=== PATIENT | female | born 1990 | race Caucasian/White ===

== ENCOUNTER → 2017-02-14 | Outpatient (CLI) | payer BC ==
--- NOTE | 2017-02-14 15:44 | RAD ---
Right wrist radiograph 02/14/2017 at 1538 hours Indication: Right wrist pain, injured while moving fracture. Comparison: None available Technique: 4 views of the right wrist are provided. Findings: Carpal bones are well aligned. There is no acute fracture or dislocation. No significant soft tissue swelling. Bone mineralization is within normal limits. Joint spaces are maintained. Impression: No acute fracture or dislocation.
== END | disposition home or self-care (01) ==
LOC: DXRADRC 15:28
PROVIDERS: ATTEND Family Medicine
DX: M25.531 Pain in right wrist (principal)
CPT/HCPCS: 73110

== ENCOUNTER → 2017-07-22 | Outpatient (CLI) | payer OTHER ==
--- NOTE | 2017-07-22 12:06 | RAD ---
Right shoulder, 3 views, 07/22/2017: History: Shoulder pain No fracture or dislocation is identified. The periarticular soft tissues are unremarkable. IMPRESSION: No significant right shoulder abnormality is detected.
== END | disposition home or self-care (01) ==
LOC: PMG 11:29
PROVIDERS: ATTEND Physician Assistant
DX: M25.511 Pain in right shoulder (principal)
CPT/HCPCS: 73030

== ENCOUNTER 2017-11-14 08:52 | Emergency (ER) | payer BC, OTHER ==
[~2017-11-14] VITALS: Ht 154.9 cm; Wt 83.5 kg
[2017-11-14] MEDS ORDERED: IV NORMAL SALINE 1,000ML 1,000 ML IV SCH (09:10)
[2017-11-14] MEDS ORDERED: 0.9 % SODIUM CHLORIDE 10 ML DISP.SYRIN. IV PRN (09:15)
--- NOTE | 2017-11-14 09:42 | PHYS DOC ---
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 Patient had her normal menstrual period about 2 weeks ago began having some spotting and bleeding today and yesterday with some cramping in her lower abdominal region. Said the abdominal cramping comes and goes and is moderate in nature about a 510 at this time with some radiation to the flanks bilaterally and the lower abdomen. She denies any trauma, denies any vaginal discharge or history of STDs. She is sexual active without protection but does not believe she is as she had a normal menstrual period about 2 weeks ago. Patient denies any fevers, chills, UTI symptoms like urgency frequency or dysuria. Review of Systems Review of Systems Constitutional: Denies fever or chills [] Eyes: Denies change in visual acuity, redness, or eye pain [] HENT: Denies nasal congestion or sore throat [] Respiratory: Denies cough or shortness of breath [] Cardiovascular: No additional information not addressed in HPI [] GI: Positive for abdominal pain negative for nausea vomiting diarrhea or bloody stools or constipation. : Denies dysuria but positive for hematuria vaginal bleeding described a slight with some clot formation Musculoskeletal: Denies back pain or joint pain [] Integument: Denies rash or skin lesions [] Neurologic: Denies headache, focal weakness or sensory changes [] Endocrine: Denies polyuria or polydipsia [] All other systems were reviewed and found to be within normal limits, except as documented in this note. Current Medications Current Medications Current Medications Medications (Trade) Dose Ordered Sig/Fina Start Time Stop Time Status Last Admin Dose Admin Sodium Chloride (Normal Saline Flush) 10 ml QSHIFT PRN 11/14/17 09:15 Allergies Allergies Allergies Coded Allergies Type Severity Reaction Last Updated Verified sulfamethoxazole Allergy Unknown Rash 11/14/17 Yes trimethoprim Allergy Unknown Rash 11/14/17 Yes Physical Exam Physical Exam The vital signs recorded the chart within normal limits. Constitutional: Well developed, well nourished, no acute distress, non-toxic appearance. [] HENT: Normocephalic, atraumatic, bilateral external ears normal, oropharynx moist, Cardiovascular:Heart rate regular rhythm, no murmur [] Lungs & Thorax: Bilateral breath sounds clear to auscultation [] Abdomen: Bowel sounds normal, soft, no tenderness, no guarding rebound or organomegaly no Dozier's or McBurney's point tenderness palpation. No masses, no pulsatile masses. [] Skin: Warm, dry, no erythema, no rash. [] Back: No tenderness, no CVA tenderness. [] ] Neurologic: Alert and oriented X 3,[] Psychologic: Affect normal, judgement normal, mood normal. [] EKG EKG [] Radiology/Procedures Radiology/Procedures [] Course & Med Decision Making Course & Med Decision Making Laboratory Tests Test 11/14/17 09:15 11/14/17 09:19 11/14/17 09:40 Urine Collection Type Unknown Urine Color Yellow Urine Clarity Clear Urine pH 6.5 Urine Specific [place] 1.020 Urine Protein Neg (NEG-TRACE) Urine Glucose (UA) Neg mg/dL (NEG) Urine Ketones (Stick) Neg mg/dL (NEG) Urine Blood Neg (NEG) Urine Nitrite Neg (NEG) Urine Bilirubin Neg (NEG) Urine Urobilinogen Dipstick 0.2 mg/dL (0.2 mg/dL) Urine Leukocyte Esterase Neg (NEG) Urine RBC 0 /HPF (0-2) Urine WBC 0 /HPF (0-4) Urine Squamous Epithelial Cells Occ /LPF Urine Bacteria 0 /HPF (0-FEW) POC Urine HCG, Qualitative hcg negative (Negative) White Blood Count 10.2 x10^3/uL (4.0-11.0) Red Blood Count 4.52 x10^6/uL (3.50-5.40) Hemoglobin 14.4 g/dL (12.0-15.5) POC Hemoglobin 13.3 gm/dL Hematocrit 41.8 % (36.0-47.0) POC Hematocrit 39 % Mean Corpuscular Volume 93 fL (79-100) Mean Corpuscular Hemoglobin 32 pg (25-35) Mean Corpuscular Hemoglobin Concent 35 g/dL (31-37) Red Cell Distribution Width 13.0 % (11.5-14.5) Platelet Count 246 x10^3/uL (140-400) Neutrophils (%) (Auto) 56 % (31-73) Lymphocytes (%) (Auto) 32 % (24-48) Monocytes (%) (Auto) 6 % (0-9) Eosinophils (%) (Auto) 5 % (0-3) H Basophils (%) (Auto) 1 % (0-3) Neutrophils # (Auto) 5.7 x10^3uL (1.8-7.7) Lymphocytes # (Auto) 3.3 x10^3/uL (1.0-4.8) Monocytes # (Auto) 0.6 x10^3/uL (0.0-1.1) Eosinophils # (Auto) 0.5 x10^3/uL (0.0-0.7) Basophils # (Auto) 0.1 x10^3/uL (0.0-0.2) POC Sodium 141 mmol/L (135-145) POC Potassium 3.7 mmol/L (3.5-5.0) POC Chloride 100 mmol/L (98-110) POC Total CO2 26 mmol/L (23-32) Anion Gap 20 mmol/L (6-14) H POC Blood Urea Nitrogen 16 mg/dL (8-26) POC Creatinine 0.9 mg/dL (0.5-1.4) Glucose Level 105 mg/dL (60-99) H POC Ionized Calcium (Felipa) 1.19 mmol/L (1.13-1.32) Pertinent Labs and Imaging studies reviewed. (See chart for details) []Patient presents with dysfunctional uterine bleeding with minimal abdominal pain. Patient's urinalysis is clear for signs of infection, patient is not by negative urine test. Patient's H&H is nice and stable with normal findings. Patient's CMP is normal. Patient NOTED THE BEDSIDE WHERE THE PROFESSOR OF MARKETING A DIFFICULT TIME VISUALIZING THE LEFT OVARY BUT BASED ON HIS PHYSIOLOGIC APPEARANCE HE LOOKED NORMAL. PATIENT HAD NO ABDOMINAL PAIN AT THE TIME NOR DID SHE HAVE ANY COMPLAINT ON HER INITIAL PRESENTATION I DOUBT THIS IS TORSION. PATIENT IS MINIMAL BLEEDING IF ANY SHE HAS A SMALL AMOUNT OF FLUID IN THE UTERUS WHICH MAY BE ASSOCIATE WITH HER DYSFUNCTIONAL UTERINE BLEEDING. SHE ALSO NOTED CARPAL LUTEUM CYST WHICH MAY BE CAUSING THE ABDOMINAL DISCOMFORT. SHE HAD MINIMAL PHYSIOLOGIC FREE FLUID AND NO SIGNS OF ACTIVE HEMORRHAGE AT THIS TIME. Impression: Corpus luteum cyst, dysfunctional uterine bleeding. Disposition: discharge: I've spoken with the patient and/or caregivers. I've explained the patient's condition, diagnosis and treatment plan based on information available to me at this time. I've answered the patient's and/or caregivers questions and addressed any concerns. The patient and/or caregivers have a good understanding the patient's diagnosis, condition and treatment plan as can be expected at this point. Vital signs have been stabilized. The patient's condition is stable for discharge from the emergency department. The patient will pursue further outpatient evaluation with her primary care provider or other designated consulting physician as outlined in the discharge instructions. Patient and/or caregivers are agreeable to this plan of care and follow-up instructions have been explained in detail. The patient and/or caregivers have received these instructions in written format and expressed understanding of these discharge instructions. The patient and her caregivers are aware that if any significant change in condition or worsening of symptoms should prompt him to immediately return to this of the closest emergency department. If an emergent department is not readily available I would encourage him to call 911. Nathalia Disclaimer [place] Disclaimer This electronic medical record was generated, in whole or in part, using a voice recognition dictation system. Departure Departure: Impression: Primary Impression: Dysfunctional uterine bleeding Additional Impression: Cyst, corpus, luteum ruptured Disposition: 01 HOME, SELF-CARE Condition: STABLE Referrals: TRA RENTERIA DO (PCP) Patient Instructions: Uterine Bleeding, Dysfunctional Additional Instructions: discharge: I've spoken with the patient and/or caregivers. I've explained the patient's condition, diagnosis and treatment plan based on information available to me at this time. I've answered the patient's and/or caregivers questions and addressed any concerns. The patient and/or caregivers have a good understanding the patient's diagnosis, condition and treatment plan as can be expected at this point. Vital signs have been stabilized. The patient's condition is stable for discharge from the emergency department. The patient will pursue further outpatient evaluation with her primary care provider or other designated consulting physician as outlined in the discharge instructions. Patient and/or caregivers are agreeable to this plan of care and follow-up instructions have been explained in detail. The patient and/or caregivers have received these instructions in written format and expressed understanding of these discharge instructions. The patient and her caregivers are aware that if any significant change in condition or worsening of symptoms should prompt him to immediately return to this of the closest emergency department. If an emergent department is not readily available I would encourage him to call 911. Specialist women's care number [phone] Scripts Naproxen Sodium (NAPROXEN SODIUM) 275 Mg Tablet 275 MG PO BID for 7 Days, #14 TAB Prov: RAMOS GARCIA MD 11/14/17 Problem Qualifiers RAMOS GARCIA MD Nov 14, 2017 09:42
[2017-11-14 09:55] LABS: BACTERIA,URINE 0 /HPF (0-FEW); BILIRUBIN,URINE NEG (NEG); CLARITY,URINE CLEAR; COLOR,URINE YELLOW; GLUCOSE,URINE NEG (NEG); NITRITE,URINE NEG (NEG); RBC,URINE 0 /HPF (0-2); SQUAMOUS EPITHELIAL CELL,UR OCC /LPF; UROBILINOGEN,URINE 0.2 mg/dL (0.2 mg/dL); WBC,URINE 0 /HPF (0-4)
[2017-11-14 09:59] LABS: BASO # 0.1 x10^3/uL (0.0-0.2); BASO % 1 % (0-3); EOS # 0.5 x10^3/uL (0.0-0.7); EOS % 5 % (0-3); HEMATOCRIT 41.8 % (36.0-47.0); HEMOGLOBIN 14.4 g/dL (12.0-15.5); LYMPH # 3.3 x10^3/uL (1.0-4.8); LYMPH % 32 % (24-48); MEAN CORPUSCULAR HEMOGLOBIN 32 pg (25-35); MEAN CORPUSCULAR HGB CONC 35 g/dL (31-37); MEAN CORPUSCULAR VOLUME 93 fL (79-100); MONO # 0.6 x10^3/uL (0.0-1.1); MONO % 6 % (0-9); NEUT # 5.7 x10^3uL (1.8-7.7); NEUT % 56 % (31-73); PLATELET COUNT 246 x10^3/uL (140-400); RED BLOOD COUNT 4.52 x10^6/uL (3.50-5.40); WHITE BLOOD COUNT 10.2 x10^3/uL (4.0-11.0)
[2017-11-14 10:02] LABS: POTASSIUM ISTAT 3.7 mmol/L (3.5-5.0)
[2017-11-14 10:03] LABS: HEMOGLOBIN ISTAT 13.3 gm/dL
--- NOTE | 2017-11-14 10:47 | RAD ---
Transabdominal and transvaginal sonography of the pelvis Clinical indications: Dysfunctional uterine bleeding Transabdominal sonography: The uterus is anteverted in position. The longitudinal and AP and transverse dimensions of the uterus are 7.5 cm and 4.3 cm and 5.5 cm respectively. There is a fibroid of the fundal portion of the uterus. The endometrial canal is poorly visualized. Therefore, transvaginal sonography will be performed. The right ovary is normal and measures 3.1 cm and 2.1 cm and 2.8 cm in size and is normal. Color Doppler flow is seen within the right ovary. The left ovary is not visualized. No adnexal mass or fluid is evident. Transvaginal sonography: The fibroid is seen within the fundal portion of the uterus and measures 3.5 cm in greatest dimension. The endometrial canal is echogenic and measures 5.6 mm in thickness. No free fluid is seen within the endometrial canal. No free fluid is seen within the cul-de-sac. The right ovary contains a 1.7 cm corpus luteum cyst and demonstrates color Doppler flow. The left ovary measures 2.9 cm and 1.5 cm and 2.4 cm in size and is normal. Color Doppler flow could not be obtained within the left ovary. IMPRESSION: 3.5 cm fundal uterine fibroid. Endometrial canal is normal measuring 5.6 mm in thickness. 1.7 cm corpus luteum cyst of the right ovary. Color Doppler flow could not be attained within the left ovary which otherwise appears normal. This may be due to technical factors related to the posterior position of the left ovary. Ovarian torsion is considered unlikely given the normal appearance and size of the left ovary. Electronically signed by: Rojas Ruffin MD (11/14/2017 10:44 AM) [id number]
[2017-11-14] MEDS ORDERED: NAPR275T59 PO (11:18)
[2017-11-14 11:34] VITALS: BP 114/71
[2017-11-14 11:38] LABS: ALBUMIN 3.9 g/dL (3.4-5.0); ALK PHOS 67 U/L (46-116); TOTAL BILIRUBIN 0.4 mg/dL (0.2-1.0); TOTAL PROTEIN 6.7 g/dL (6.4-8.2)
[2017-11-14 11:39] LABS: ALT (SGPT) 27 U/L (14-59); AST (SGOT) 31 U/L (15-37)
[2017-11-14 11:40] LABS: DIRECT BILIRUBIN < 0.1 mg/dL (0.0-0.2); MAGNESIUM 1.9 mg/dL (1.8-2.4)
== END 2017-11-14 11:34 | disposition home or self-care (01) ==
LOC: ER 08:52
DX: N93.8 Other specified abnormal uterine and vaginal bleeding (principal); N83.11 Corpus luteum cyst of right ovary; Z88.1 Allergy status to other antibiotic agents; Z88.2 Allergy status to sulfonamides
CPT/HCPCS: 36415; 76830; 76856; 80047; 80076; 81001; 81025; 83735; 84702; 85025; 96360; 96361; 99285-25; J7030

== ENCOUNTER 2017-12-11 06:29 | Emergency (ER) | payer SELFPAY ==
[~2017-12-11] VITALS: Ht 154.9 cm; Wt 83.5 kg
[~2017-12-11 06:29] MED LIST: NAPR275T59 PO
== END 2017-12-11 06:45 | disposition left against medical advice (07) ==
LOC: ER 06:29 → EEVIPCON 06:29 → ER 06:45
DX: T76.21XA Adult sexual abuse, suspected, initial encounter (principal); Z53.21 Procedure and treatment not carried out due to patient leaving prior to being seen by health care provider

== ENCOUNTER 2018-04-03 01:14 | Emergency (ER) | payer OTHER ==
[~2018-04-03] VITALS: Ht 154.9 cm; Wt 77.0 kg
--- NOTE | 2018-04-03 01:19 | ED.ADGEN ---
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 I hurt my shoulder...".. I at [employer]..two weeks ago.. 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 but I first hurt it at [employer].. and they had me on leave and getting physical therapy... under Dr. Bourgeois.. but it is still hurting.... me." HPI HPI Patient is a 27 year old female who presents with above hx and complaints numbness under Rt. arm and pain with ROM of Rt. shoulder. Pt lst injured the shoulder at [facility] in June lat year. Pt. was under leave and PT with Dr. Bourgeois. Reportedly did a CT here at [place]. Pt. while on leave from [facility] , she started a job at [employer] and re-injury to Rt. shoulder two weeks ago. Pt. has sensation of Deltoid area. Subjective numbness under Rt axillary. Has some crepitation and limited ROM of Rt. Shoulder. Has some isolated rotator cuff weakness on Rt. shoulder testing. Distal neuro vascular equal to Lt . Pt, is Rt. hand dominate. Could not find old CT records under current name or daphney Anne. Pt. has old shoulder x-rays of 07/22/17, no significant findings noted. Today xrays show no interval change. Review of Systems Review of Systems Constitutional: Denies fever or chills [] Eyes: Denies change in visual acuity, redness, or eye pain [] HENT: Denies nasal congestion or sore throat [] Respiratory: Denies cough or shortness of breath [] Cardiovascular: No additional information not addressed in HPI [] GI: Denies abdominal pain, nausea, vomiting, bloody stools or diarrhea [] : Denies dysuria or hematuria [] Musculoskeletal: Denies back pain or joint pain []Except complaints of Rt shoulder pain. Integument: Denies rash or skin lesions [] Neurologic: Denies headache, focal weakness or sensory changes [] Endocrine: Denies polyuria or polydipsia [] All other systems were reviewed and found to be within normal limits, except as documented in this note. Family History Family History Non-contributory Current Medications Current Medications Current Medications Medications (Trade) Dose Ordered Sig/Fina Start Time Stop Time Status Last Admin Dose Admin Hydrocodone Bitartrate/ Ibuprofen (Vicoprofen 7.5-200) 2 tab 1X ONCE 04/03/18 02:15 04/03/18 02:36 DC 04/03/18 02:35 2 TAB Allergies Allergies Allergies Coded Allergies Type Severity Reaction Last Updated Verified sulfamethoxazole Allergy Unknown Rash 11/14/17 Yes trimethoprim Allergy Unknown Rash 11/14/17 Yes Physical Exam Physical Exam Constitutional: Well developed, well nourished, Moderately acute distress, intoxicated in appearance. [] HENT: Normocephalic, atraumatic, bilateral external ears normal, oropharynx moist, no oral exudates, nose normal. [] Eyes: PERRLA, EOMI, conjunctiva normal, no discharge. [] Neck: Normal range of motion, no tenderness, supple, no stridor. [] Cardiovascular:Heart rate regular rhythm, no murmur [] Lungs & Thorax: Bilateral breath sounds equal with scattered wheezes on auscultation [] Abdomen: Bowel sounds normal, soft, no tenderness, no masses, no pulsatile masses. [] Skin: Warm, dry, no erythema, no rash. [] Back: No tenderness, no CVA tenderness. [] Extremities: No tenderness, no cyanosis, no clubbing, ROM intact, no edema. [] Except findings in Rt shoulder as per HPI. Neurologic: Alert and oriented X 3, normal motor function, normal sensory function, no focal deficits noted. [] Psychologic: Affect anxious, judgement normal, mood normal. [] Current Patient Data Vital Signs Vital Signs Date Time Temp Pulse Resp B/P (MAP) Pulse Ox O2 Delivery O2 Flow Rate FiO2 04/03/18 02:05 95 16 107/70 (82) 98 Room Air 04/03/18 01:14 98.1 Lab Results Laboratory Tests Test 04/03/18 00:52 04/03/18 01:33 POC Urine HCG, Qualitative hcg negative (Negative) Urine Collection Type Unknown Urine Color Yellow Urine Clarity Clear Urine pH 5.5 Urine Specific [place] 1.015 Urine Protein Neg (NEG-TRACE) Urine Glucose (UA) Neg mg/dL (NEG) Urine Ketones (Stick) Neg mg/dL (NEG) Urine Blood Trace (NEG) Urine Nitrite Neg (NEG) Urine Bilirubin Neg (NEG) Urine Urobilinogen Dipstick 0.2 mg/dL (0.2 mg/dL) Urine Leukocyte Esterase Trace (NEG) Urine RBC 0 /HPF (0-2) Urine WBC 1-4 /HPF (0-4) Urine Squamous Epithelial Cells Occ /LPF Urine Bacteria 0 /HPF (0-FEW) Urine Opiates Screen Neg (NEG) Urine Methadone Screen Neg (NEG) Urine Barbiturates Neg (NEG) Urine Phencyclidine Screen Neg (NEG) Urine Amphetamine/Methamphetamine Neg (NEG) Urine Benzodiazepines Screen Neg (NEG) Urine Cocaine Screen Neg (NEG) Urine Cannabinoids Screen Neg (NEG) Urine Ethyl Alcohol Pos (NEG) EKG EKG [] Radiology/Procedures Radiology/Procedures My interpretation of results showed no obvious fracture dislocation. Comparison to prior film showed no interval change.[] Course & Med Decision Making Course & Med Decision Making Pertinent Labs and Imaging studies reviewed. (See chart for details) Pt. use Ice packs as needed. . Follow up with work comp. Tylenol and Ibuprofen for pain. Sling x 48 hrs. or until follow up with work comp. [] Final Impression Final Impression 1. Rt. shoulder []Injury- ? Recurrent- Rotator cuff injury Dragon Disclaimer Dragon Disclaimer This electronic medical record was generated, in whole or in part, using a voice recognition dictation system. ROBERT LEMOS MD Apr 03, 2018 01:19
[2018-04-03 02:05] VITALS: BP 107/70
[2018-04-03 02:07] LABS: BARBITURATES NEG (NEG); BENZODIAZEPINES NEG (NEG); CANNABINOIDS NEG (NEG); COCAINE NEG (NEG); METHADONE NEG (NEG); OPIATES NEG (NEG); PHENCYCLIDINE NEG (NEG)
[2018-04-03] MEDS ORDERED: HYDROcodon/IBUPROFEN 7.5/200MG 1 TAB TABLET PO ONE (02:15)
[2018-04-03 02:16] LABS: BILIRUBIN,URINE NEG (NEG); CLARITY,URINE CLEAR; COLOR,URINE YELLOW; GLUCOSE,URINE NEG (NEG); UROBILINOGEN,URINE 0.2 mg/dL (0.2 mg/dL)
[2018-04-03 02:17] LABS: BACTERIA,URINE 0 /HPF (0-FEW); NITRITE,URINE NEG (NEG); RBC,URINE 0 /HPF (0-2); SQUAMOUS EPITHELIAL CELL,UR OCC /LPF
[2018-04-03 02:21] LABS: AMPHETAMINE/METHAMPHETAMINE NEG (NEG)
--- NOTE | 2018-04-03 03:16 | RAD ---
RIGHT SHOULDER , 3 VIEWS Clinical Indication: Right shoulder pain with numbness Comparison: Right shoulder radiographs July 22, 2017. Findings: There is no acute fracture or dislocation. The acromioclavicular and glenohumeral joints are intact. The visualized lung is clear. There is no evidence of a displaced rib fracture. There is no soft tissue abnormality. IMPRESSION: No acute fracture or dislocation. Electronically signed by: Jerman Millan MD (04/03/2018 3:13 AM) [id number]
== END 2018-04-03 02:39 | disposition home or self-care (01) ==
LOC: ER 01:14
DX: S46.091A Other injury of muscle(s) and tendon(s) of the rotator cuff of right shoulder, initial encounter (principal); Z88.1 Allergy status to other antibiotic agents; X58.XXXA Exposure to other specified factors, initial encounter; Y93.89 Activity, other specified; Y92.512 Supermarket, store or market as the place of occurrence of the external cause; Y99.8 Other external cause status
CPT/HCPCS: 36415; 73030; 80307; 81001; 81025; 87086; 99285-25; G0479

== ENCOUNTER 2018-08-20 22:37 | Emergency (ER) | payer OTHER ==
[~2018-08-20] VITALS: Ht 156.2 cm; Wt 75.7 kg
--- NOTE | 2018-08-20 22:44 | ED.ADGEN ---
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 I been hurting down here on the Rt.... since yesterday.. it has never gone away... I ve had ovarian cysts in past... but this seem different... We did eat spaghetti at 6 tonight...and that just seemed to make the pain worse... " [facility] HPI Patient is a 28 year old female who presents with above hx and complaints Rt . . sided mid abdomen pain since yesterday. Has been eating and having normal stools. No nausea or vomiting. No history of trauma. No history of dysuria or vaginal discharge. Patient last ate at 1800 hrs. with no improvement of right lower abdomen pain. Pain appears to be located in area of bert tattoo. Does have mild heel tap/psoas. No history immunosuppression. No hx. travel. History of bad food intake. No history of specific ill contacts. Patient has had ovarian cysts in the past. She has had 3 pregnancies 1 miscarriage and one premature and 1 live . Review of Systems Review of Systems Constitutional: Denies fever or chills [] Eyes: Denies change in visual acuity, redness, or eye pain [] HENT: Denies nasal congestion or sore throat [] Respiratory: Denies cough or shortness of breath [] Cardiovascular: No additional information not addressed in HPI [] GI: Complaints of Rt. lower abdominal pain. Denies, nausea, vomiting, bloody stools or diarrhea [] : Denies dysuria or hematuria [] Musculoskeletal: Denies back pain or joint pain [] Integument: Denies rash or skin lesions [] Neurologic: Denies headache, focal weakness or sensory changes [] Endocrine: Denies polyuria or polydipsia [] All other systems were reviewed and found to be within normal limits, except as documented in this note. Family History Family History Noncontributory Current Medications Current Medications Current Medications Medications (Trade) Dose Ordered Sig/Fina Start Time Stop Time Status Last Admin Dose Admin Ceftriaxone Sodium 1 gm/ Sodium Chloride 50 ml @ 100 mls/hr 1X ONCE 08/20/18 23:30 08/20/18 23:58 DC Ceftriaxone Sodium (Rocephin) 1 gm ONCE ONCE 08/20/18 23:45 08/21/18 00:00 DC 08/20/18 23:58 1 GM Famotidine (Pepcid Vial) 20 mg 1X ONCE 08/20/18 23:15 08/20/18 23:16 DC 08/20/18 23:30 20 MG Info (Do NOT chart on this entry -- for MONITORING) 1 each PRN DAILY PRN 08/20/18 23:45 08/21/18 03:03 DC Iohexol (Omnipaque 240 Mg/ml) 50 ml 1X ONCE 08/21/18 00:00 08/21/18 00:01 DC 08/21/18 01:10 50 ML Iohexol (Omnipaque 300 Mg/ml) 75 ml 1X ONCE 08/21/18 00:00 08/21/18 00:01 DC 08/21/18 01:10 75 ML Ketorolac Tromethamine (Toradol 30mg Vial) 30 mg STK-MED ONCE 08/21/18 02:43 08/21/18 03:03 DC Lactated Ringer's 1,000 ml @ 1,000 mls/hr Q1H 08/20/18 23:00 08/21/18 00:00 DC 08/20/18 23:30 1,000 MLS/HR Ondansetron HCl (Zofran) 8 mg 1X ONCE 08/20/18 23:15 08/20/18 23:16 DC 08/20/18 23:30 8 MG Allergies Allergies Allergies Coded Allergies Type Severity Reaction Last Updated Verified sulfamethoxazole Allergy Unknown Rash 08/20/18 Yes trimethoprim Allergy Unknown Rash 08/20/18 Yes Physical Exam Physical Exam Constitutional: Well developed, well nourished, moderately acute distress, non- toxic appearance. [] HENT: Normocephalic, atraumatic, bilateral external ears normal, oropharynx moist, no oral exudates, nose normal. 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 [] Neck: Normal range of motion, no tenderness, supple, no stridor. [] Cardiovascular:Heart rate regular rhythm, no murmur [] Lungs & Thorax: Bilateral breath sounds clear to auscultation [] Abdomen: Bowel sounds normal, soft, mid to right lower quadrant tenderness, no masses, no pulsatile masses. [Declines rectal and vaginal exam at this time. Skin: Warm, dry, no erythema, no rash. [] Back: No tenderness, no CVA tenderness. [] Extremities: No tenderness, no cyanosis, no clubbing, ROM intact, no edema. [] Mild psoas. Neurologic: Alert and oriented X 3, normal motor function, normal sensory function, no focal deficits noted. [] Psychologic: Affect anxious, judgement normal, mood normal. [] Current Patient Data Vital Signs Vital Signs Date Time Temp Pulse Resp B/P (MAP) Pulse Ox O2 Delivery O2 Flow Rate FiO2 08/21/18 02:25 89 18 115/55 (75) 96 Room Air 08/20/18 22:40 98.9 Lab Results Laboratory Tests Test 08/20/18 22:44 08/20/18 22:54 08/20/18 23:15 Urine Collection Type Unknown Urine Color Yellow Urine Clarity Hazy Urine pH 6.5 Urine Specific Eden 1.020 Urine Protein Neg (NEG-TRACE) Urine Glucose (UA) Neg mg/dL (NEG) Urine Ketones (Stick) Neg mg/dL (NEG) Urine Blood Neg (NEG) Urine Nitrite Neg (NEG) Urine Bilirubin Neg (NEG) Urine Urobilinogen Dipstick 2 mg/dL (0.2 mg/dL) Urine Leukocyte Esterase Small (NEG) Urine RBC 0 /HPF (0-2) Urine WBC 5-10 /HPF (0-4) Urine Squamous Epithelial Cells Mod /LPF Urine Bacteria Few /HPF (0-FEW) Urine Opiates Screen Neg (NEG) Urine Methadone Screen Neg (NEG) Urine Barbiturates Neg (NEG) Urine Phencyclidine Screen Neg (NEG) Urine Amphetamine/Methamphetamine Neg (NEG) Urine Benzodiazepines Screen Neg (NEG) Urine Cocaine Screen Neg (NEG) Urine Cannabinoids Screen Neg (NEG) Urine Ethyl Alcohol Neg (NEG) POC Urine HCG, Qualitative hcg negative (Negative) White Blood Count 14.3 x10^3/uL (4.0-11.0) H Red Blood Count 4.49 x10^6/uL (3.50-5.40) Hemoglobin 14.1 g/dL (12.0-15.5) Hematocrit 41.4 % (36.0-47.0) Mean Corpuscular Volume 92 fL (79-100) Mean Corpuscular Hemoglobin 31 pg (25-35) Mean Corpuscular Hemoglobin Concent 34 g/dL (31-37) Red Cell Distribution Width 13.1 % (11.5-14.5) Platelet Count 262 x10^3/uL (140-400) Neutrophils (%) (Auto) 61 % (31-73) Lymphocytes (%) (Auto) 26 % (24-48) Monocytes (%) (Auto) 9 % (0-9) Eosinophils (%) (Auto) 3 % (0-3) Basophils (%) (Auto) 1 % (0-3) Neutrophils # (Auto) 8.7 x10^3uL (1.8-7.7) H Lymphocytes # (Auto) 3.7 x10^3/uL (1.0-4.8) Monocytes # (Auto) 1.2 x10^3/uL (0.0-1.1) H Eosinophils # (Auto) 0.5 x10^3/uL (0.0-0.7) Basophils # (Auto) 0.1 x10^3/uL (0.0-0.2) Prothrombin Time 9.8 SEC (9.4-11.4) Prothrombin Time INR 1.0 (0.9-1.1) PTT 26 SEC (23-33) Sodium Level 139 mmol/L (136-145) Potassium Level 3.8 mmol/L (3.5-5.1) Chloride Level 103 mmol/L (98-107) Carbon Dioxide Level 26 mmol/L (21-32) Anion Gap 10 (6-14) Blood Urea Nitrogen 16 mg/dL (7-20) Creatinine 0.8 mg/dL (0.6-1.0) Estimated GFR (Cockcroft-Gault) 85.4 Glucose Level 87 mg/dL (70-99) Calcium Level 8.3 mg/dL (8.5-10.1) L Total Bilirubin 0.3 mg/dL (0.2-1.0) Direct Bilirubin 0.1 mg/dL (0.0-0.2) Aspartate Amino Transferase (AST) 14 U/L (15-37) L Alanine Aminotransferase (ALT) 20 U/L (14-59) Alkaline Phosphatase 70 U/L (46-116) Total Protein 7.3 g/dL (6.4-8.2) Albumin 3.4 g/dL (3.4-5.0) Amylase Level 32 U/L (25-115) Lipase 137 U/L (73-393) EKG EKG [] Radiology/Procedures Radiology/Procedures My interpretation of acute abdomen film shows no acute cardiopulmonary findings. No free air in the diaphragm. Bilateral nipple studs. Has a nonobstructive bowel gas pattern. There is stool in right colon. CT of abdomen shows no hydronephrosis, no dilated loops of bowel, does have a mass like structure at fundus uterus. Possible fibroid. There is also lesion on left ovary. There is small amount of free fluid. Appendix appears not to be inflamed. Course & Med Decision Making Course & Med Decision Making Pertinent Labs and Imaging studies reviewed. (See chart for details) Patient's stay on a clear fluid diet only for the next 24-48 hours. No solid or milk products. Push fluids. Follow up urine cultures. Follow-up INDUSTRIAL SPRAY PAINTER for further evaluation of suspected uterine fibroid. Patient take [id number] Tylenol and ibuprofen. Patient take Keflex 500 mg 3 times a day. Patient return if any concerns. [] Final Impression Final Impression 1. Rt. Side Abd. Pain[] 2. UTI 3. Suspected ovarian cyst 4. Suspect uterine fibroid Dragon Disclaimer Dragon Disclaimer This electronic medical record was generated, in whole or in part, using a voice recognition dictation system. Dragon Disclaimer This chart was dictated in whole or in part using Voice Recognition software in a busy, high-work load, and often noisy Emergency Department environment. It may contain unintended and wholly unrecognized errors or omissions. Discharge Summary Visit Information Final Diagnosis Problems Medical Problems: (1) Ovarian cyst Status: Acute (2) Pain in the abdomen Status: Acute (3) Uterine fibroid Status: Acute (4) UTI (urinary tract infection) Status: Acute (5) Viral syndrome Status: Acute Brief Hospital Course Allergies Allergies Coded Allergies Type Severity Reaction Last Updated Verified sulfamethoxazole Allergy Unknown Rash 08/20/18 Yes trimethoprim Allergy Unknown Rash 08/20/18 Yes Vital Signs Vital Signs Date Time Temp Pulse Resp B/P (MAP) Pulse Ox O2 Delivery O2 Flow Rate FiO2 08/21/18 02:25 89 18 115/55 (75) 96 Room Air 08/20/18 22:40 98.9 Lab Results Laboratory Tests Test 08/20/18 22:44 08/20/18 22:54 08/20/18 23:15 Urine Collection Type Unknown Urine Color Yellow Urine Clarity Hazy Urine pH 6.5 Urine Specific [place] 1.020 Urine Protein Neg (NEG-TRACE) Urine Glucose (UA) Neg mg/dL (NEG) Urine Ketones (Stick) Neg mg/dL (NEG) Urine Blood Neg (NEG) Urine Nitrite Neg (NEG) Urine Bilirubin Neg (NEG) Urine Urobilinogen Dipstick 2 mg/dL (0.2 mg/dL) Urine Leukocyte Esterase Small (NEG) Urine RBC 0 /HPF (0-2) Urine WBC 5-10 /HPF (0-4) Urine Squamous Epithelial Cells Mod /LPF Urine Bacteria Few /HPF (0-FEW) Urine Opiates Screen Neg (NEG) Urine Methadone Screen Neg (NEG) Urine Barbiturates Neg (NEG) Urine Phencyclidine Screen Neg (NEG) Urine Amphetamine/Methamphetamine Neg (NEG) Urine Benzodiazepines Screen Neg (NEG) Urine Cocaine Screen Neg (NEG) Urine Cannabinoids Screen Neg (NEG) Urine Ethyl Alcohol Neg (NEG) Bedside Urine HCG, Qualitative hcg negative (Negative) White Blood Count 14.3 x10^3/uL (4.0-11.0) Red Blood Count 4.49 x10^6/uL (3.50-5.40) Hemoglobin 14.1 g/dL (12.0-15.5) Hematocrit 41.4 % (36.0-47.0) Mean Corpuscular Volume 92 fL (79-100) Mean Corpuscular Hemoglobin 31 pg (25-35) Mean Corpuscular Hemoglobin Concent 34 g/dL (31-37) Red Cell Distribution Width 13.1 % (11.5-14.5) Platelet Count 262 x10^3/uL (140-400) Neutrophils (%) (Auto) 61 % (31-73) Lymphocytes (%) (Auto) 26 % (24-48) Monocytes (%) (Auto) 9 % (0-9) Eosinophils (%) (Auto) 3 % (0-3) Basophils (%) (Auto) 1 % (0-3) Neutrophils # (Auto) 8.7 x10^3uL (1.8-7.7) Lymphocytes # (Auto) 3.7 x10^3/uL (1.0-4.8) Monocytes # (Auto) 1.2 x10^3/uL (0.0-1.1) Eosinophils # (Auto) 0.5 x10^3/uL (0.0-0.7) Basophils # (Auto) 0.1 x10^3/uL (0.0-0.2) Prothrombin Time 9.8 SEC (9.4-11.4) Prothromb Time International Ratio 1.0 (0.9-1.1) Activated Partial Thromboplast Time 26 SEC (23-33) Sodium Level 139 mmol/L (136-145) Potassium Level 3.8 mmol/L (3.5-5.1) Chloride Level 103 mmol/L (98-107) Carbon Dioxide Level 26 mmol/L (21-32) Anion Gap 10 (6-14) Blood Urea Nitrogen 16 mg/dL (7-20) Creatinine 0.8 mg/dL (0.6-1.0) Estimated GFR (Cockcroft-Gault) 85.4 Glucose Level 87 mg/dL (70-99) Calcium Level 8.3 mg/dL (8.5-10.1) Total Bilirubin 0.3 mg/dL (0.2-1.0) Direct Bilirubin 0.1 mg/dL (0.0-0.2) Aspartate Amino Transf (AST/SGOT) 14 U/L (15-37) Alanine Aminotransferase (ALT/SGPT) 20 U/L (14-59) Alkaline Phosphatase 70 U/L (46-116) Total Protein 7.3 g/dL (6.4-8.2) Albumin 3.4 g/dL (3.4-5.0) Amylase Level 32 U/L (25-115) Lipase 137 U/L (73-393) Brief Hospital Course Ms. Lopez is a 28 old female who presented with Rt. mid/and lower abd. pain. CT found no acute pathology. Possible ovarian cyst-rupture. Appendix not inflamed. Uterine fibroid. Pt. to stay on clear fluids and follow up with OB /Ductfixing Plumber and primary. Follow up urine cultures. Return if any concerns. Discharge Information Condition at Discharge: Improved, Stable Disposition/Orders: D/C to Home Dischare Medications Current Medications Lactated Ringer's 1,000 ml @ 1,000 mls/hr Q1H IV Last administered on at 23:30; Admin Dose 1,000 MLS/HR; Start 08/20/18 at 23:00; Stop 08/21/18 at 00:00; Status DC Ondansetron HCl (Zofran) 8 mg 1X ONCE IV Last administered on 08/20/18at 23:30 ; Admin Dose 8 MG; Start 08/20/18 at 23:15; Stop 08/20/18 at 23:16; Status DC Famotidine (Pepcid Vial) 20 mg 1X ONCE IVP Last administered on 08/20/18at 23: 30; Admin Dose 20 MG; Start 08/20/18 at 23:15; Stop 08/20/18 at 23:16; Status DC Ceftriaxone Sodium 1 gm/ Sodium Chloride 50 ml @ 100 mls/hr 1X ONCE IV ; Start 08/20/18 at 23:30; Stop 08/20/18 at 23:58; Status DC Ceftriaxone Sodium (Rocephin) 1 gm STK-MED ONCE IVP ; Start 08/20/18 at 23:38; Stop 08/20/18 at 23:40; Status DC Iohexol (Omnipaque 240 Mg/ml) 50 ml STK-MED ONCE .ROUTE ; Start 08/20/18 at 23: 45; Stop 08/20/18 at 23:47; Status DC Iohexol (Omnipaque 300 Mg/ml) 75 ml 1X ONCE IV Last administered on 08/21/18at 01:10; Admin Dose 75 ML; Start 08/21/18 at 00:00; Stop 08/21/18 at 00:01; Status DC Iohexol (Omnipaque 240 Mg/ml) 50 ml 1X ONCE PO Last administered on 08/21/18at 01:10; Admin Dose 50 ML; Start 08/21/18 at 00:00; Stop 08/21/18 at 00:01; Status DC Ceftriaxone Sodium (Rocephin) 1 gm ONCE ONCE IVP Last administered on at 23:58; Admin Dose 1 GM; Start 08/20/18 at 23:45; Stop 08/21/18 at 00:00; Status DC Info (Do NOT chart on this entry -- for MONITORING) 1 each PRN DAILY PRN MC SEE COMMENTS; Start 08/20/18 at 23:45; Stop 08/21/18 at 03:03; Status DC Ketorolac Tromethamine (Toradol 30mg Vial) 30 mg 1X ONCE IV Last administered on 08/21/18at 02:45; Admin Dose 30 MG; Start 08/21/18 at 02:45; Stop 08/21/18 at 03:03; Status DC Ketorolac Tromethamine (Toradol 30mg Vial) 30 mg STK-MED ONCE .ROUTE ; Start at 02:43; Stop 08/21/18 at 03:03; Status DC Active Scripts Active Keflex (Cephalexin) 500 Mg Capsule 500 Mg PO TID 7 Days Naproxen Sodium 275 Mg Tablet 275 Mg PO BID 7 Days ROBERT LEMOS MD Aug 20, 2018 22:44
[2018-08-20] MEDS ORDERED: IV RINGERS SOLUTION,LACTATED 1,000 ML IV SCH (23:00)
[2018-08-20] MEDS ORDERED: FAMOTIDINE 20 MG/2 ML VIAL IVP ONE (23:15)
[2018-08-20] MEDS ORDERED: ONDANSETRON PF 4 MG/2 ML VIAL. IV ONE (23:15)
[2018-08-20 23:23] LABS: BARBITURATES NEG (NEG); BENZODIAZEPINES NEG (NEG); CANNABINOIDS NEG (NEG); COCAINE NEG (NEG); METHADONE NEG (NEG); OPIATES NEG (NEG); PHENCYCLIDINE NEG (NEG)
[2018-08-20 23:24] LABS: BILIRUBIN,URINE NEG (NEG); CLARITY,URINE HAZY; COLOR,URINE YELLOW; GLUCOSE,URINE NEG (NEG); NITRITE,URINE NEG (NEG); RBC,URINE 0 /HPF (0-2); UROBILINOGEN,URINE 2 mg/dL (0.2 mg/dL)
[2018-08-20 23:25] LABS: BACTERIA,URINE FEW /HPF (0-FEW); SQUAMOUS EPITHELIAL CELL,UR MOD /LPF
[2018-08-20 23:28] LABS: AMPHETAMINE/METHAMPHETAMINE NEG (NEG)
[2018-08-20 23:36] LABS: BASO # 0.1 x10^3/uL (0.0-0.2); BASO % 1 % (0-3); EOS # 0.5 x10^3/uL (0.0-0.7); EOS % 3 % (0-3); HEMATOCRIT 41.4 % (36.0-47.0); HEMOGLOBIN 14.1 g/dL (12.0-15.5); LYMPH # 3.7 x10^3/uL (1.0-4.8); LYMPH % 26 % (24-48); MEAN CORPUSCULAR HEMOGLOBIN 31 pg (25-35); MEAN CORPUSCULAR HGB CONC 34 g/dL (31-37); MEAN CORPUSCULAR VOLUME 92 fL (79-100); MONO # 1.2 x10^3/uL (0.0-1.1); MONO % 9 % (0-9); NEUT # 8.7 x10^3uL (1.8-7.7); NEUT % 61 % (31-73); PLATELET COUNT 262 x10^3/uL (140-400); RED BLOOD COUNT 4.49 x10^6/uL (3.50-5.40); RED CELL DISTRIBUTION WIDTH 13.1 % (11.5-14.5); WHITE BLOOD COUNT 14.3 x10^3/uL (4.0-11.0)
[2018-08-20] MEDS ORDERED: cefTRIAXone IV Push 1 GM VIAL. IVP ONE ×2 (23:38→23:45)
[2018-08-20] MEDS ORDERED: CONTRAST GIVEN MC PRN (23:45)
[2018-08-20] MEDS ORDERED: IOHEXOL 240 MG/ML 50ML VIAL. ONE (23:45)
[2018-08-20 23:49] LABS: ALBUMIN 3.4 g/dL (3.4-5.0); CALCIUM 8.3 mg/dL (8.5-10.1); CREATININE 0.8 mg/dL (0.6-1.0); DIRECT BILIRUBIN 0.1 mg/dL (0.0-0.2); GFR 85.4; POTASSIUM 3.8 mmol/L (3.5-5.1); TOTAL BILIRUBIN 0.3 mg/dL (0.2-1.0); TOTAL PROTEIN 7.3 g/dL (6.4-8.2)
[2018-08-21] MEDS ORDERED: IOHEXOL 240 MG/ML 50ML VIAL. PO ONE
[2018-08-21] MEDS ORDERED: IOHEXOL 300 MG/ML 75 ML VIAL. IV ONE
--- NOTE | 2018-08-21 01:56 | RAD ---
INDICATION: RIGHT LOWER QUADRANT ABDOMINAL PAIN
NO HX
GAVE OMNI 300 75ML IV AND OMNI 240 30ML ORAL COMPARISON: November 2017 pelvic ultrasound TECHNIQUE: Axial CT images obtained through the abdomen and pelvis with contrast. One or more of the following individualized dose reduction techniques were utilized for this examination: 1. Automated exposure control; 2. Adjustment of the mA and/or kV according to patient size; 3. Use of iterative reconstruction technique. FINDINGS: Abdominal aorta not aneurysmal. No intrahepatic bile duct dilation. No peripancreatic fluid collection. Spleen unremarkable. No left-sided hydronephrosis. Urinary bladder is partially distended. No right-sided hydronephrosis. Low density masslike structure anterior aspect of the uterus measuring up to approximately 6 cm. Free fluid within the pelvis. Low-density structure left adnexa measuring up to 24 mm. The appendix does not appear grossly inflamed. No dilated loops of bowel to suggest obstruction. IMPRESSION: 1. No dilated loops of bowel to suggest obstruction. 2. Large masslike structure at the fundus of the uterus. Most common cause would be uterine fibroid but a follow-up pelvic ultrasound could be helpful to further evaluate. There is also a low-density lesion of the left ovary suspected which could be better evaluated on ultrasound as well. Electronically signed by: Willis Barry MD (08/21/2018 1:52 AM) [id number]
[2018-08-21 02:25] VITALS: BP 115/55
[2018-08-21] MEDS ORDERED: CEPH-264 PO (02:34)
[2018-08-21] MEDS ORDERED: KETOROLAC 30 MG/ML VIAL. ONE (02:43)
[2018-08-21] MEDS ORDERED: KETOROLAC 30 MG/ML VIAL. IV ONE (02:45)
--- NOTE | 2018-08-21 07:53 | RAD ---
Acute abdomen series with chest, 3 views, 08/20/2018: HISTORY: Right lower quadrant abdominal pain The abdominal gas pattern is unremarkable. No free air seen in the abdomen. There is no evidence of organomegaly or abnormal abdominal calcification. The heart size is normal. The lungs are clear. There is no evidence of pleural fluid. IMPRESSION: No acute abdominal abnormality is detected. Electronically signed by: Luis Felipe Brandt MD (08/21/2018 7:49 AM) [facility]
== END 2018-08-21 02:56 | disposition home or self-care (01) ==
LOC: ER 22:37
DX: N39.0 Urinary tract infection, site not specified (principal); N83.201 Unspecified ovarian cyst, right side; D25.9 Leiomyoma of uterus, unspecified; B34.9 Viral infection, unspecified; F41.9 Anxiety disorder, unspecified; H54.62 Unqualified visual loss, left eye, normal vision right eye; F32.9 Major depressive disorder, single episode, unspecified; Z86.2 Personal history of diseases of the blood and blood-forming organs and certain disorders involving the immune mechanism; Z88.1 Allergy status to other antibiotic agents
CPT/HCPCS: 36415; 74022; 74177; 80048; 80076; 80307; 81001; 81025; 82150; 83690; 85025; 85610; 85730; 87086; 96374; 96375; 99284; J0696; J1885; J2405; J3490; J7120; Q9966; Q9967; 96361

== ENCOUNTER 2019-05-03 15:08 | Emergency (ER) | payer OTHER ==
[~2019-05-03 15:08] MED LIST changes: +CEPH-264 PO
--- NOTE | 2019-05-03 15:45 | RAD ---
Single view chest dated 05/03/2019: No comparison available. Clinical Indication: Chest pain. Findings: Single upright portable exam of the chest was performed. Heart size and mediastinal contours are within normal limits given technique. The lungs are clear without evidence of focal consolidation. Vascular interstitium is within normal limits. Impression:: Negative portable chest. Electronically signed by: Long Marie MD (05/03/2019 3:42 PM) [facility]
--- NOTE | 2019-05-03 15:51 | PHYS DOC ---
Past History Past Medical History: Other Additional Past Medical Histor: epilepsy; hypoglycemia; blind in left eye Past Surgical History: Other Additional Past Surgical Histo: left eye Smoking: Non-smoker Alcohol Use: None Drug Use: None Adult General Chief Complaint Chief Complaint: CHEST PAIN [facility] Patient is a 29-year-old female who presents with complaint of chest pain that started this morning. She states that the pain feels like a lot of tightness in her lungs, feeling like she is not able to get enough air in. She states that when she takes in a deep breath it is sharp and stabbing in nature. She states that she has had a cough and states the cough worsens the pain as well. Patient is a smoker and is 37 weeks . She denies any lower extremity swelling or pain. She denies any nausea or vomiting but does admit to diaphoresis. Patient rates pain at a 6-7 out of 10.[] Review of Systems Review of Systems Constitutional: Denies fever or chills [] Respiratory: Admits to cough and shortness of breath [] Cardiovascular: No additional information not addressed in HPI [] GI: Denies abdominal pain, nausea, vomiting or diarrhea [] Integument: Denies rash or skin lesions [] Neurologic: Denies headache, focal weakness or sensory changes [] All other systems were reviewed and found to be within normal limits, except as documented in this note. Allergies Allergies Allergies Coded Allergies Type Severity Reaction Last Updated Verified sulfamethoxazole Allergy Unknown Rash 08/20/18 Yes trimethoprim Allergy Unknown Rash 08/20/18 Yes Physical Exam Physical Exam Constitutional: Well developed, well nourished, no acute distress, non-toxic appearance. [] HENT: Normocephalic, atraumatic, bilateral external ears normal, oropharynx m oist, no oral exudates, nose normal. [] Eyes: PERRLA, EOMI, conjunctiva normal, no discharge. [] Neck: Normal range of motion, no tenderness, supple, no stridor. [] Cardiovascular: Tachycardic rate with regular rhythm[] Lungs & Thorax: Bilateral breath sounds clear to auscultation [] Abdomen: Bowel sounds normal, gravid, with right upper quadrant tenderness. [] Skin: Warm, dry, no erythema, no rash. [] Extremities: No tenderness, no cyanosis, no clubbing, ROM intact, no edema. [] Neurologic: Alert and oriented X 3, no focal deficits noted. [] Current Patient Data Vital Signs Vital Signs Date Time Temp Pulse Resp B/P (MAP) Pulse Ox O2 Delivery O2 Flow Rate FiO2 05/03/19 15:15 92 22 96 Room Air EKG EKG EKG demonstrates sinus tachycardia with rate of 114.[] Radiology/Procedures Radiology/Procedures [] Impressions: PROCEDURE: PORTABLE CHEST 1V Single view chest dated 05/03/2019: No comparison available. Clinical Indication: Chest pain. Findings: Single upright portable exam of the chest was performed. Heart size and mediastinal contours are within normal limits given technique. The lungs are clear without evidence of focal consolidation. Vascular interstitium is within normal limits. Impression:: Negative portable chest. Electronically signed by: Long Marie MD (05/03/2019 3:42 PM) [facility] PROCEDURE: ABDOMEN LTD Indication:Right upper quadrant pain. . TECHNIQUE: Grayscale, color Doppler and spectral waveform is of the abdomen obtained. COMPARISON:None FINDINGS: Pancreas is not visualized due to bowel gas. IVC is patent. Liver measures 14 cm in longest dimension with diffuse increased echogenicity. Main portal vein is patent with hepatopedal flow. No gallstones, pericholecystic fluid or gallbladder wall thickening. Right kidney measures 10.3 cm in length with mild hydronephrosis. CBD measures 3 mm in diameter and is within normal limits. IMPRESSION: 1. No cholelithiasis or sonographic evidence of acute cholecystitis. 2. Mild right hydronephrosis which may physiologic related to . 3. Mild hepatic steatosis. Electronically signed by: James Long DO (05/03/2019 5:36 PM) [facility] Course & Med Decision Making Course & Med Decision Making Pertinent Labs and Imaging studies reviewed. (See chart for details) Patient moved to room upon arrival was evaluated by your medical staff after which blood work and EKG was obtained, and chest x-ray performed. Ultimately a gallbladder ultrasound was also obtained. Patient did have findings of elevated d-dimer and given her symptoms with the chest pain, shortness of breath along with elevated d-dimer coupled with and being a smoker, my plan was to transfer patient to [facility] to be further evaluated for pulmonary embolism. While I was involved with a post code patient, patient elected to leave AGAINST MEDICAL ADVICE before I could discuss findings of ultrasound as well as concerns for possible pulmonary embolism. Despite nursing staff informing patient that I would be in as soon as possible, patient elected to leave AGAINST MEDICAL ADVICE. Dragon Disclaimer Dragon Disclaimer This electronic medical record was generated, in whole or in part, using a voice recognition dictation system. Departure Departure: Impression: Primary Impression: Chest pain Additional Impression: Elevated d-dimer Disposition: 07 AGAINST MEDICAL ADVICE Condition: IMPROVED Referrals: EMMA CABRALES MD (PCP) Problem Qualifiers Primary Impression: Chest pain Chest pain type: unspecified Qualified Codes: R07.9 - Chest pain, unspecified ACE GRANADOS Jr. DO May 03, 2019 15:51
[2019-05-03 16:02] LABS: ALBUMIN 2.5 g/dL (3.4-5.0); ALBUMIN/GLOBULIN RATIO 0.6 (1.0-1.7); CALCIUM 8.5 mg/dL (8.5-10.1); CREATININE 0.6 mg/dL (0.6-1.0); GFR 118.2; MAGNESIUM 1.8 mg/dL (1.8-2.4); TOTAL BILIRUBIN 0.3 mg/dL (0.2-1.0); TOTAL PROTEIN 6.4 g/dL (6.4-8.2)
[2019-05-03 16:12] LABS: BASO % 0 % (0-3); EOS # 0.2 x10^3/uL (0.0-0.7); EOS % 1 % (0-3); HEMATOCRIT 38.5 % (36.0-47.0); HEMOGLOBIN 13.4 g/dL (12.0-15.5); LYMPH % 21 % (24-48); MEAN CORPUSCULAR HEMOGLOBIN 31 pg (25-35); MEAN CORPUSCULAR HGB CONC 35 g/dL (31-37); MEAN CORPUSCULAR VOLUME 90 fL (79-100); MONO # 0.9 x10^3/uL (0.0-1.1); MONO % 6 % (0-9); NEUT # 10.2 x10^3uL (1.8-7.7); NEUT % 71 % (31-73); PLATELET COUNT 179 x10^3/uL (140-400); RED BLOOD COUNT 4.25 x10^6/uL (3.50-5.40); RED CELL DISTRIBUTION WIDTH 12.9 % (11.5-14.5); WHITE BLOOD COUNT 14.4 x10^3/uL (4.0-11.0)
[2019-05-03 17:24] LABS: CLARITY,URINE TURBID; COLOR,URINE AMBER
[2019-05-03 17:25] LABS: BACTERIA,URINE FEW /HPF (0-FEW); BILIRUBIN,URINE NEG (NEG); GLUCOSE,URINE NEG (NEG); NITRITE,URINE NEG (NEG); RBC,URINE 0 /HPF (0-2); SQUAMOUS EPITHELIAL CELL,UR MANY /LPF; UROBILINOGEN,URINE 0.2 mg/dL (0.2 mg/dL)
--- NOTE | 2019-05-03 17:39 | RAD ---
Indication:Right upper quadrant pain. . TECHNIQUE: Grayscale, color Doppler and spectral waveform is of the abdomen obtained. COMPARISON:None FINDINGS: Pancreas is not visualized due to bowel gas. IVC is patent. Liver measures 14 cm in longest dimension with diffuse increased echogenicity. Main portal vein is patent with hepatopedal flow. No gallstones, pericholecystic fluid or gallbladder wall thickening. Right kidney measures 10.3 cm in length with mild hydronephrosis. CBD measures 3 mm in diameter and is within normal limits. IMPRESSION: 1. No cholelithiasis or sonographic evidence of acute cholecystitis. 2. Mild right hydronephrosis which may physiologic related to . 3. Mild hepatic steatosis. Electronically signed by: James Long DO (05/03/2019 5:36 PM) [facility]
--- NOTE | 2019-05-04 09:01 | EKG ---
[address] [address] Test Date: 2019-05-03 Test Time: 15:15:33 Pat Name: LILI TRIVEDI Department: Room: Gender: F Tax Associate: : 1990 Requested By: ACE GRANADOS Order Number: [id number] Reading MD: Tres Guzman MD Measurements Intervals [place] Rate: 114 P: 25 TN: 134 QRS: 26 QRSD: 78 T: 27 QT: 310 QTc: 431 Interpretive Statements SINUS TACHYCARDIA Electronically Signed On 05-14-2019 14:39:07 CDT by Tres Guzman MD
== END 2019-05-03 18:05 | disposition left against medical advice (07) ==
LOC: ER 15:08
DX: O26.893 Other specified pregnancy related conditions, third trimester (principal); R07.89 Other chest pain; R79.1 Abnormal coagulation profile; O99.333 Smoking (tobacco) complicating pregnancy, third trimester; Z3A.37 37 weeks gestation of pregnancy; Z88.2 Allergy status to sulfonamides; Z88.1 Allergy status to other antibiotic agents
CPT/HCPCS: 36415; 71045; 76705; 80053; 81001; 83690; 83735; 84484; 85025; 85379; 87086; 93005; 99285